=== PATIENT | male | born 1980 | race Caucasian/White ===

== ENCOUNTER → 2017-10-21 | Outpatient (CLI) | payer BC | LOC: M CARPUL 13:44 | DX: J45.20 Mild intermittent asthma, uncomplicated (principal) | CPT/HCPCS: 94010 ==

== ENCOUNTER 2019-09-13 14:24 | Emergency (ER) | payer BC ==
[~2019-09-13] VITALS: Ht 175.3 cm; Wt 102.2 kg
[2019-09-13] MEDS ORDERED: diphenhydrAMINE INJ 50MG/ML VIAL (J1200) IV STA (15:46)
[2019-09-13] MEDS ORDERED: NS 1,000 ML IV ONE (16:00)
[2019-09-13] MEDS ORDERED: METOCLOPRAMIDE INJ 10MG/2ML VIAL (J2765) IV ONE (16:00)
--- NOTE | 2019-09-13 16:11 | REP ---
Clinical: Acute headache . Comparison: None . Findings: The ventricles, sulci, and cisterns are normal in position and appearance. Mohan-white differentiation is maintained. No acute intracranial hemorrhage, mass/mass effect, pathology or trauma/injury. No evidence for acute infarction. No extra-axial fluid collection. Calvarium is intact. Paranasal sinuses and mastoid air cells are clear. Impression: Normal noncontrast head CT. No evidence for acute intracranial pathology or trauma/injury. Electronically Signed by Frederick Hawkins MD 09/13/2019 04:02 P
[2019-09-13 16:24] LABS: HEMATOCRIT 46.2 % (42.0-52.0); MEAN CORPUSCULAR HEMOGLOBIN 31.3 pg (27.0-33.0); MEAN CORPUSCULAR HGB CONC 32.5 g/dl (32.0-36.5); MEAN CORPUSCULAR VOLUME 96.3 fl (80.0-96.0); PLATELET COUNT, AUTOMATED 238 10^3/uL (150-450); WHITE BLOOD COUNT 6.3 10^3/uL (4.0-10.0)
[2019-09-13] MEDS ORDERED: KETOROLAC 30 MG/ML VIAL (J1885) IV ONE (16:30)
[2019-09-13 16:40] LABS: INR 0.93; PROTHROMBIN TIME 12.1 SECONDS (11.8-14.0)
[2019-09-13 16:46] LABS: BLOOD UREA NITROGEN 16 MG/DL (7-18); CALCIUM LEVEL 8.9 MG/DL (8.5-10.1); CARBON DIOXIDE LEVEL 29 MEQ/L (21-32); CHLORIDE LEVEL 106 MEQ/L (98-107); GLOMERULAR FILTRATION RATE > 60.0 (>60); GLUCOSE, FASTING 85 MG/DL (70-100); POTASSIUM SERUM 3.7 MEQ/L (3.5-5.1); SODIUM LEVEL 141 MEQ/L (136-145)
[2019-09-13] MEDS ORDERED: REGL10TA6 PO (17:02)
[2019-09-13 17:22] VITALS: BP 108/66
== END 2019-09-13 17:32 | disposition home or self-care (01) ==
LOC: M ED 14:24
DX: R51 Headache (principal)
CPT/HCPCS: 70450; 80048; 85027; 85610; 96374; 96375; 99284; J1200; J1885; J2765